=== PATIENT | male | born 1950 | race Caucasian/White ===

== ENCOUNTER → 2018-06-26 | Outpatient (REF) | payer MEDICARE, MEDICAID ==
[2018-06-26 14:52] LABS: PLATELET COUNT, AUTOMATED 159 K/uL (150-450)
== END ==
LOC: ZZSTITCHES 14:40
PROVIDERS: ATTEND Physician Assistant
DX: R42 Dizziness and giddiness (principal)
CPT/HCPCS: 82040; 82247; 82310; 82374; 82435; 82565; 82947; 84075; 84132; 84155; 84295; 84450; 84460; 84520; 85025

== ENCOUNTER 2018-06-28 13:35 | Emergency (ER) | payer MEDICARE, MEDICAID ==
--- NOTE | 2018-06-28 13:37 | ER Report ---
History and Physical Time Seen By MD: 13:37 HPI/ROS CHIEF COMPLAINT: Syncopal episode and fall HISTORY OF PRESENT ILLNESS: This is a 68-year-old male who presents to the emergency department via EMS from [facility] for a syncopal episode and a fall. Patient states that recently he's been having more and more syncopal episodes, got up earlier this morning felt a little bit dizzy when back to bed, a friend came over to see how he was doing, he stood up and walked to the door and then had a question of a syncopal episode fell to the ground and heard some popping and had severe right lower extremity pain. He also has pain in the right hip. There is a large amount of soft tissue swelling questionable deformity. Denies hitting his head, no nausea or vomiting. No chest pain or shortness of breath at this time. He did receive 100 g of IM fentanyl prior to arrival. REVIEW OF SYSTEMS: Constitutional: No fever, no chills. Eyes: No discharge. ENT: No sore throat. Cardiovascular: No chest pain, no palpitations. Respiratory: No cough, no shortness of breath. Gastrointestinal: No abdominal pain, no vomiting. Genitourinary: No hematuria. Musculoskeletal: As above. Skin: No rashes. Neurological: As above. Allergies: Coded Allergies: Quinolones (Verified Allergy, Severe, CHEST PAIN, 06/28/18) elevated potassium at lethal levels ciprofloxacin (Verified Adverse Reaction, Severe, NAUSEA/VOMITING, 06/28/18) NSAIDS (Non-Steroidal Anti-Inflamma (Verified Adverse Reaction, Intermediate, UNKNOWN, 06/28/18) can't take due to ckd metformin (Verified Adverse Reaction, Intermediate, SEDATION, 06/28/18) sulfamethoxazole (Verified Adverse Reaction, Intermediate, HALLUCINATIONS, 06/28/18) trimethoprim (Verified Adverse Reaction, Intermediate, HALLUCINATIONS, 06/28/18) Home Meds Reported Medications [vitamin b gtts] No Conflict Check, 0.5 GTT PO BID 06/28/18 Exenatide Microspheres (BYDUREON) 2 Mg Vial, 2 MG SQ QWEEK, VIAL 06/28/18 Insulin Aspart 100 Un/Ml Pen (NOVOLOG FLEXPEN) 100 Unit/1 Ml Insuln.pen, 100 UNIT SQ ACHS, ML 06/28/18 Insulin Detemir (LEVEMIR) 100 Unit/Ml Injs, 52 UNIT SUBQ HS 06/28/18 Nitroglycerin (NITROGLYCERIN) 0.4 Mg Tab.subl, 0.4 MG SL Q5MIN PRN for CHEST PAIN-MAY REPEAT X 3 06/28/18 Cranberry Extract (CRANBERRY) 405 Mg Capsule, 405 MG PO QDAY, CAPSULE 06/28/18 Glipizide (GLIPIZIDE) 10 Mg Tablet, 10 MG PO BID 06/28/18 Chlorthalidone (CHLORTHALIDONE) 25 Mg Tab, 25 MG PO QDAY, TAB 06/28/18 Atorvastatin Calcium (LIPITOR) 40 Mg Tablet, 1 TAB PO QDAY, TAB 06/28/18 Omeprazole (OMEPRAZOLE) 20 Mg Capsule.dr, 1 CAP PO QDAY, CAP 06/28/18 Duloxetine HCl (Duloxetine HCl) 60 Mg Capsule.dr, 60 MG PO HS 06/28/18 Multivits-Minerals/Fa/Lycopene (ONE DAILY MEN'S HEALTH TABLET) 1 Each Tablet, 1 CAP PO QDAY 06/28/18 [kyolic] No Conflict Check, 1 CAP PO QDAY 06/28/18 Aspirin (ASPIR 81) 81 Mg Tablet.dr, 81 MG PO QDAY, TAB 06/28/18 Fluoxetine Hcl (FLUOXETINE HCL) 20 Mg Capsule, 20 MG PO QDAY, CAPSULE 06/28/18 Hydrocodone Bit/Acetaminophen (HYDROCODON-ACETAMINOPHEN 5-325) 1 Each Tablet, 1 EACH PO Q6H PRN for PAIN, TAB 06/28/18 Ondansetron (ZOFRAN ODT) 4 Mg Tab.rapdis, 4 MG PO Q12H PRN for NAUSEA, TAB.GEORGE 06/28/18 Metoprolol Tartrate (METOPROLOL TARTRATE) 25 Mg Tablet, 1 TAB PO BID, TAB 06/28/18 Cholecalciferol (Vitamin D3) (VITAMIN D3) 1,000 Unit Tablet, 2000 UNIT PO QDAY, TAB 06/28/18 [ultra-zyme] No Conflict Check, 1 CAP PO QDAY 06/28/18 Lisinopril (LISINOPRIL) 5 Mg Tablet, 5 MG PO QDAY, TAB 06/28/18 Tamsulosin Hcl (TAMSULOSIN HCL) 0.4 Mg Cap.er.24h, 0.4 MG PO DAILY, CAP 06/28/18 Gabapentin (GABAPENTIN) 300 Mg Capsule, 900 MG PO HS, CAPSULE 06/28/18 Gabapentin (GABAPENTIN) 300 Mg Capsule, 300 MG PO BID, CAPSULE 06/28/18 Past Medical/Surgical History The patient has a past medical and surgical history of seizures, myocardial infarction, hypertension, hypercholesterolemia, COPD, GERD, diverticulitis, bladder disease, liver disease, successful treatment for hep C, urinary tract infections, kidney infections, BPH, multiple orthopedic injuries including thumb, left ankle, right leg, chronic back pain, broken cracked ribs, cataract surgery, sinusitis, type II diabetes with insulin, depression, history of m elanoma, cholecystectomy, left ankle surgery, bilateral carpal tunnel surgery. Reviewed Nurses Notes: Yes Constitutional Vital Sign - Last 24 Hours 06/28/18 06/28/18 06/28/18 06/28/18 13:35 13:37 13:40 14:00 Temp 98.5 Pulse 88 71 Resp 11 12 B/P (MAP) 143/88 (106) 143/88 153/103 (120) Pulse Ox 93 98 O2 Delivery Room Air Room Air 06/28/18 06/28/18 06/28/18 06/28/18 14:05 14:35 14:57 15:00 Pulse 82 79 Resp 9 10 B/P (MAP) 111/69 (83) 125/81 (96) Pulse Ox 93 94 O2 Delivery Room Air Room Air 06/28/18 06/28/18 06/28/18 06/28/18 15:05 15:10 15:30 15:40 Pulse 86 81 91 Resp 11 12 11 B/P (MAP) 124/88 (100) Pulse Ox 98 96 97 O2 Delivery Room Air Room Air Room Air 06/28/18 06/28/18 06/28/18 06/28/18 15:45 16:00 16:15 16:20 Pulse 88 86 90 Resp 16 14 9 B/P (MAP) 118/78 (91) Pulse Ox 96 94 93 O2 Delivery Room Air Room Air Room Air 06/28/18 16:30 B/P (MAP) 113/70 (84) Physical Exam General Appearance: The patient is alert, has no immediate need for airway protection and no signs of toxicity. Eyes: Pupils equal and round no pallor or injection. EOMs intact. No nystagmus. ENT, Mouth: Mucous membranes are moist. Respiratory: There are no retractions, lungs are clear to auscultation. Cardiovascular: Regular rate and rhythm, no murmurs, clicks or rubs. Gastrointestinal: Abdomen is soft and non tender, no masses, bowel sounds normal. Neurological: Alert and oriented 4. Moving all extremities. Following all commands. No focal neuro deficits. Rapid sequence movements of the upper extremities intact. Equal sensation in the upper and lower extremities. Neuropathy in lower extremities. No facial droop. Skin: Contusion to the right lower extremity. Abrasion to the right knee. Musculoskeletal: Neck is supple non tender. Extremities swelling, pain and mild crepitus felt with firm palpation of the right lower extremity. Dopplered pulses on the right lower extremity on the dorsalis pedis and posterior tibial. DIFFERENTIAL DIAGNOSIS: After history and physical exam differential diagnosis was considered for contusion, pelvic fracture, femur fracture, ankle subluxation, tib-fib fracture and abrasion. Medical Decision Making Data Points Result Diagram: 06/28/18 1407 06/28/18 1407 Laboratory Hematology Test 06/28/18 14:07 Red Blood Count 4.81 M/uL (4.00-5.60) Mean Corpuscular Volume 95.1 fL (80.0-96.0) Mean Corpuscular Hemoglobin 33.8 pg (26.0-33.0) Mean Corpuscular Hemoglobin Concent 35.5 g/dL (32.0-36.0) Red Cell Distribution Width 13.3 % (11.5-14.5) Mean Platelet Volume 7.3 fL (7.2-11.1) Neutrophils (%) (Auto) 66.1 % (39.4-72.5) Lymphocytes (%) (Auto) 26.1 % (17.6-49.6) Monocytes (%) (Auto) 5.9 % (4.1-12.4) Eosinophils (%) (Auto) 1.2 % (0.4-6.7) Basophils (%) (Auto) 0.7 % (0.3-1.4) Nucleated RBC Relative Count (auto) 0.0 /100WBC Neutrophils # (Auto) 6.3 K/uL (2.0-7.4) Lymphocytes # (Auto) 2.5 K/uL (1.3-3.6) Monocytes # (Auto) 0.6 K/uL (0.3-1.0) Eosinophils # (Auto) 0.1 K/uL (0.0-0.5) Basophils # (Auto) 0.1 K/uL (0.0-0.1) Nucleated RBC Absolute Count (auto) 0.00 K/uL Peripheral Blood Smear No Y/N Prothrombin Time 13.3 seconds (12.0-14.4) Prothromb Time International Ratio 1.01 Activated Partial Thromboplast Time 30 seconds (23-35) Sodium Level 135 mmol/L (137-145) Potassium Level 4.4 mmol/L (3.5-5.0) Chloride Level 96 mmol/L (98-107) Carbon Dioxide Level 23 mmol/L (22-30) Blood Urea Nitrogen 25 mg/dl (9-21) Creatinine 1.40 mg/dl (0.66-1.25) Glomerular Filtration Rate Calc 50.4 Random Glucose 170 mg/dl (75-110) Calcium Level 10.2 mg/dl (8.4-10.2) Total Bilirubin 1.5 mg/dl (0.2-1.3) Aspartate Amino Transf (AST/SGOT) 34 U/L (0-35) Alanine Aminotransferase (ALT/SGPT) 28 U/L (0-56) Alkaline Phosphatase 65 U/L (0-126) Troponin I < 0.012 ng/ml Total Protein 8.8 g/dl (6.3-8.2) Albumin 4.5 g/dl (3.5-5.0) Chemistry Test 06/28/18 14:07 White Blood Count 9.6 k/uL (4.5-11.0) Red Blood Count 4.81 M/uL (4.00-5.60) Hemoglobin 16.3 g/dL (14.0-18.0) Hematocrit 45.8 % (42.0-52.0) Mean Corpuscular Volume 95.1 fL (80.0-96.0) Mean Corpuscular Hemoglobin 33.8 pg (26.0-33.0) Mean Corpuscular Hemoglobin Concent 35.5 g/dL (32.0-36.0) Red Cell Distribution Width 13.3 % (11.5-14.5) Platelet Count 143 K/uL (150-450) Mean Platelet Volume 7.3 fL (7.2-11.1) Neutrophils (%) (Auto) 66.1 % (39.4-72.5) Lymphocytes (%) (Auto) 26.1 % (17.6-49.6) Monocytes (%) (Auto) 5.9 % (4.1-12.4) Eosinophils (%) (Auto) 1.2 % (0.4-6.7) Basophils (%) (Auto) 0.7 % (0.3-1.4) Nucleated RBC Relative Count (auto) 0.0 /100WBC Neutrophils # (Auto) 6.3 K/uL (2.0-7.4) Lymphocytes # (Auto) 2.5 K/uL (1.3-3.6) Monocytes # (Auto) 0.6 K/uL (0.3-1.0) Eosinophils # (Auto) 0.1 K/uL (0.0-0.5) Basophils # (Auto) 0.1 K/uL (0.0-0.1) Nucleated RBC Absolute Count (auto) 0.00 K/uL Peripheral Blood Smear No Y/N Prothrombin Time 13.3 seconds (12.0-14.4) Prothromb Time International Ratio 1.01 Activated Partial Thromboplast Time 30 seconds (23-35) Glomerular Filtration Rate Calc 50.4 Calcium Level 10.2 mg/dl (8.4-10.2) Total Bilirubin 1.5 mg/dl (0.2-1.3) Aspartate Amino Transf (AST/SGOT) 34 U/L (0-35) Alanine Aminotransferase (ALT/SGPT) 28 U/L (0-56) Alkaline Phosphatase 65 U/L (0-126) Troponin I < 0.012 ng/ml Total Protein 8.8 g/dl (6.3-8.2) Albumin 4.5 g/dl (3.5-5.0) Coagulation Test 06/28/18 14:07 Prothrombin Time 13.3 seconds Prothromb Time International Ratio 1.01 Activated Partial Thromboplast Time 30 seconds EKG/Imaging EKG Interpretation 12 lead EKG: Time of EKG 1349. Rhythm: Normal sinus rhythm, ventricular rate 75 bpm. [place]: normal QRS: normal ST segments: No ST elevation or depression identified. No previous EKGs for comparison. Imaging Location: [facility] Patient: Basilio Jeter : 1950 Visit/Account:[id number] Date of Sevice: 06/28/2018 Three views right ankle, two views right tibia fibula, three dedicated views right knee, two views right femur, two views right hip INDICATION: Fall, deformity of the right lower extremity. COMPARISON: None Available FINDINGS: Three dedicated views of the ankle are submitted. There is a partially viewed, obliquely oriented, displaced fracture through the distal tibial shaft. This fracture is best delineated on the dedicated views of the tibia and fibula. The distal fracture fragment is approximately 1.2 cm medially and 1.6 cm anteriorly displaced. Punctate, subtly displaced fracture fragments are noted. The mortise joint appears symmetric. Talar dome is unremarkable. Distal fibula is intact. Minimal view of the hindfoot demonstrates no evidence of acute osseous finding. 2 dedicated views of the tibia and fibula demonstrate the obliquely oriented, mildly displaced proximal fibular fracture with the obliquely oriented, dis placed distal tibial fracture. 3 Dedicated views of the knee are submitted. There is an obliquely oriented, mildly displaced fracture proximal fibular shaft. The distal fracture fragment is 6 mm laterally and 3 mm anteriorly displaced. The proximal tibia is unremarkable. Alignment is anatomic at the knee. Small joint effusion is noted. The remainder of the femur is intact. Dedicated views of the proximal femur and at the hip demonstrate anatomic alignment without additional fracture. A stent is noted over the region of the femoral head. The right pubic rami are intact. Structures of the pelvis appears symmetric. IMPRESSION: 1. Obliquely oriented, mildly displaced proximal fibular fracture with an obliquely oriented, displaced distal tibial fracture as above. 2.Small joint effusion at the knee 3. Dedicated imaging of the hip and ankle reveal no additional acute osseous finding. Proximal femurs unremarkable. Report Dictated By: Steve Garay MD at 06/28/2018 2:59 PM Report E-Signed By: Steve Garay MD at 06/28/2018 3:08 PM WSN:[email or web address] Location: [facility] Patient: Basilio Jeter : 1950 Visit/Account:[id number] Date of Sevice: 06/28/2018 Single view of the chest Indication: Fall Comparison: Xray from 03/17/18 Findings: Heart size within normal limits. Lungs are clear. No pneumothorax or pleural effusion. No evidence of acute osseous finding on this single frontal projection IMPRESSION: 1. No acute cardiopulmonary process. Report Dictated By: Steve Garay MD at 06/28/2018 2:56 PM Report E-Signed By: Steve Garay MD at 06/28/2018 2:59 PM WSN:[facility] Three views right ankle, two views right tibia fibula, three dedicated views right knee, two views right femur, two views right hip INDICATION: Fall, deformity of the right lower extremity. COMPARISON: None Available FINDINGS: Three dedicated views of the ankle are submitted. There is a partially viewed, obliquely oriented, displaced fracture through the distal tibial shaft. This fracture is best delineated on the dedicated views of the tibia and fibula. The distal fracture fragment is approximately 1.2 cm medially and 1.6 cm anteriorly displaced. Punctate, subtly displaced fracture fragments are noted. The mortise joint appears symmetric. Talar dome is unremarkable. Distal fibula is intact. Minimal view of the hindfoot demonstrates no evidence of acute osseous finding. 2 dedicated views of the tibia and fibula demonstrate the obliquely oriented, mildly displaced proximal fibular fracture with the obliquely oriented, displaced distal tibial fracture. 3 Dedicated views of the knee are submitted. There is an obliquely oriented, mildly displaced fracture proximal fibular shaft. The distal fracture fragment is 6 mm laterally and 3 mm anteriorly displaced. The proximal tibia is unremarkable. Alignment is anatomic at the knee. Small joint effusion is noted. The remainder of the femur is intact. Dedicated views of the proximal femur and at the hip demonstrate anatomic alignment without additional fracture. A stent is noted over the region of the femoral head. The right pubic rami are intact. Structures of the pelvis appears symmetric. IMPRESSION: 1. Obliquely oriented, mildly displaced proximal fibular fracture with an obliquely oriented, displaced distal tibial fracture as above. 2.Small joint effusion at the knee 3. Dedicated imaging of the hip and ankle reveal no additional acute osseous finding. Proximal femurs unremarkable. Report Dictated By: Steve Garay MD at 06/28/2018 2:59 PM Report E-Signed By: Steve Garay MD at 06/28/2018 3:08 PM WSN:[facility] ED Course/Re-evaluation Clinical Indication for ER IV: Hydration, IV Access ED Course The patient was admitted to a room via EMS. A history and physical were obtained. Differential diagnoses were considered. An IV was started via EMS. A CBC, CMP and troponin were obtained. EKG showing normal sinus rhythm. Patient did receive 100 g IM fentanyl prior to arrival. Patient was given 1 mg IV Dilaudid in the emergency department.CBC unremarkable, chemistry showing sodium 135, BUN 25, creatinine 1.4, glucose 170. Negative troponin. A single view chest x-ray was negative for any acute cardiopulmonary process. Right hip and pelvis negative for any acute injury. Negative femur. Knee showing small effusion. Tib- fib showing Obliquely oriented, mildly displaced proximal fibular fracture with an obliquely oriented, displaced distal tibial fracture, 6mm laterally, 3mm anteriorly. No acute injury of the ankle mortise. I reviewed the imaging results with the patient, we reviewed several options, I did tell him I would be contacting the orthopedist on-call, I did speak with Dr. Cornelius as noted below, he also contacted his partner who will be coming on-call Dr. Hercules, they feel that the patient would be better served in a larger facility as noted below. I did speak with Dr. Jonas the orthopedist on-call at [facility], she is accepted the patient into her services as noted below. The patient did decide that he would prefer to go to [facility]. My hope is that while the patient is at [facility] they can also evaluate his syncopal episodes. The patient's right lower extremity was splinted to provide some additional pain relief. Patient was also given another 1 mg IV Dilaudid. The patient tolerated well. The patient had no other questions or concerns at this time and was transferred to [facility] via ground EMS. 06/28/2018 3:45:25 pm I did speak with Dr. Cornelius, the orthopedist on-call, he is just going into a case, he is off call later this afternoon, Dr. Hercules is on- call after Dr. Cornelius, he thought the patient would be better served in a larger facility that would be able to manage this more appropriately. 06/28/2018 4:20:57 pm I did speak with Dr. Jonas, the orthopedist on-call at [facility], who has accepted the patient into her services. Patient will be transferred down via ground ambulance. Patient is in agreement with his Medicare. Procedure: Splint placement. A long posterior splint of the right lower extremity splint was applied. The patient tolerated well, CMS intact distal to the injury after the application of the splint. The splint was adequately immobilizing the joint and distal to the splint the patient's circulation and sensation was intact. Decision to Disposition Date: Jun 28, 2018 Decision to Disposition Time: 16:22 Depart Departure Latest Vital Signs Vital Signs Date Time Temp Pulse Resp B/P (MAP) Pulse Ox O2 Delivery O2 Flow Rate FiO2 06/28/18 16:30 113/70 (84) 06/28/18 16:20 90 9 93 Room Air 06/28/18 13:40 98.5 Impression: Primary Impression: Fracture of right tibia and fibula Additional Impression: Syncope and collapse Condition: Improved Disposition: XFER TO [facility]UTE [facility]ARE [facility] Problem Qualifiers Primary Impression: Fracture of right tibia and fibula Encounter type: initial encounter Fracture type: closed Qualified Codes: S82.201A - Unspecified fracture of shaft of right tibia, initial encounter for closed fracture; S82.401A - Unspecified fracture of shaft of right fibula, initial encounter for closed fracture SHAHANA GLASS JOB SERVICE CONSULTANT-BC Jun 28, 2018 13:37
[2018-06-28] MEDS ORDERED: HYDROMORPHONE HCL 1 MG/ML SYRINGE IVP ONE ×2 (13:45→15:50)
[2018-06-28] MEDS ORDERED: ONDANSETRON 4 MG/2 ML VIAL IVP ONE (13:45)
[2018-06-28 14:18] LABS: PLATELET COUNT, AUTOMATED 143 K/uL (150-450)
[2018-06-28] MEDS ORDERED: TAMS0.4C70 PO (14:18)
[2018-06-28] MEDS ORDERED: GABA-549 PO ×2 (14:18)
[2018-06-28] MEDS ORDERED: MULT1TAB88 PO (14:37)
[2018-06-28] MEDS ORDERED: METO25TA93 PO (14:37)
[2018-06-28] MEDS ORDERED: LISI5TAB25 PO (14:37)
[2018-06-28] MEDS ORDERED: CHOL10005 PO (14:37)
[2018-06-28] MEDS ORDERED: HYDR-385 PO (14:37)
[2018-06-28] MEDS ORDERED: EXEN2VIA SQ (14:37)
[2018-06-28] MEDS ORDERED: LEVI SUBQ (14:37)
[2018-06-28] MEDS ORDERED: INSU100I35 SQ (14:37)
[2018-06-28] MEDS ORDERED: FLUO-177 PO (14:37)
[2018-06-28] MEDS ORDERED: NITR0.4T3 SL (14:37)
[2018-06-28] MEDS ORDERED: [UNRECOGNIZED DRUG - CODE] PO (14:37)
[2018-06-28] MEDS ORDERED: GLIP-154 PO (14:37)
[2018-06-28] MEDS ORDERED: VITAMIN B PO (14:37)
[2018-06-28] MEDS ORDERED: ASPI-1471 PO (14:37)
[2018-06-28] MEDS ORDERED: KYOLIC PO (14:37)
[2018-06-28] MEDS ORDERED: CHLOR25 PO (14:37)
[2018-06-28] MEDS ORDERED: CRAN405C3 PO (14:37)
[2018-06-28] MEDS ORDERED: DULO60CA7 PO (14:37)
[2018-06-28] MEDS ORDERED: ONDA4TAB PO (14:37)
[2018-06-28] MEDS ORDERED: OMEP-125 PO (14:37)
[2018-06-28] MEDS ORDERED: ATOR40TA24 PO (14:37)
--- NOTE | 2018-06-28 15:04 | RADIOLOGY IMAGING REPORT ---
FACILITY: [facility] [place] PATIENT NAME: Basilio Jeter : 1950 MR: [id number] V: [id number] EXAM DATE: ORDERING PHYSICIAN: SHAHANA GLASS TECHNOLOGIST: Location: [facility] [place] Patient: Basilio Jeter : 1950 Visit/Account:[id number] Date of Sevice: 06/28/2018 Single view of the chest Indication: Fall Comparison: Xray from 03/17/18 Findings: Heart size within normal limits. Lungs are clear. No pneumothorax or pleural effusion. No evidence of acute osseous finding on this single frontal projection IMPRESSION: 1. No acute cardiopulmonary process. Report Dictated By: Steve Garay MD at 06/28/2018 2:56 PM Report E-Signed By: Steve Garay MD at 06/28/2018 2:59 PM WSN:[email or web address]
--- NOTE | 2018-06-28 15:13 | RADIOLOGY IMAGING REPORT ---
FACILITY: [facility] [place] PATIENT NAME: Basilio Jeter : 1950 MR: [id number] V: [id number] EXAM DATE: ORDERING PHYSICIAN: SHAHANA GLASS TECHNOLOGIST: Location: [facility] Patient: Basilio Jeter : 1950 Visit/Account:[id number] Date of Sevice: 06/28/2018 Three views right ankle, two views right tibia fibula, three dedicated views right knee, two views ri ght femur, two views right hip INDICATION: Fall, deformity of the right lower extremity. COMPARISON: None Available FINDINGS: Three dedicated views of the ankle are submitted. There is a partially viewed, obliquely oriented, d isplaced fracture through the distal tibial shaft. This fracture is best delineated on the dedicated views of the tibia and fibula. The distal fracture fragment is approximately 1.2 cm medially and 1. 6 cm anteriorly displaced. Punctate, subtly displaced fracture fragments are noted. The mortise kathleen nt appears symmetric. Talar dome is unremarkable. Distal fibula is intact. Minimal view of the hin dfoot demonstrates no evidence of acute osseous finding. 2 dedicated views of the tibia and fibula demonstrate the obliquely oriented, mildly displaced proxim al fibular fracture with the obliquely oriented, displaced distal tibial fracture. 3 Dedicated views of the knee are submitted. There is an obliquely oriented, mildly displaced fract ure proximal fibular shaft. The distal fracture fragment is 6 mm laterally and 3 mm anteriorly displ aced. The proximal tibia is unremarkable. Alignment is anatomic at the knee. Small joint effusion is noted. The remainder of the femur is intact. Dedicated views of the proximal femur and at the hip demonstra te anatomic alignment without additional fracture. A stent is noted over the region of the femoral h ead. The right pubic rami are intact. Structures of the pelvis appears symmetric. IMPRESSION: 1. Obliquely oriented, mildly displaced proximal fibular fracture with an obliquely oriented, displa ruby distal tibial fracture as above. 2.Small joint effusion at the knee 3. Dedicated imaging of the hip and ankle reveal no additional acute osseous finding. Proximal femu rs unremarkable. Report Dictated By: Steve Garay MD at 06/28/2018 2:59 PM Report E-Signed By: Steve Garay MD at 06/28/2018 3:08 PM WSN:[email or web address]
--- NOTE | 2018-06-28 15:13 | RADIOLOGY IMAGING REPORT ---
FACILITY: [facility] PATIENT NAME: Basilio Jeter : 1950 MR: [id number] V: [id number] EXAM DATE: ORDERING PHYSICIAN: SHAHANA GLASS TECHNOLOGIST: Location: [facility] Patient: Basilio Jeter : 1950 Visit/Account:[id number] Date of Sevice: 06/28/2018 Three views right ankle, two views right tibia fibula, three dedicated views right knee, two views ri ght femur, two views right hip INDICATION: Fall, deformity of the right lower extremity. COMPARISON: None Available FINDINGS: Three dedicated views of the ankle are submitted. There is a partially viewed, obliquely oriented, d isplaced fracture through the distal tibial shaft. This fracture is best delineated on the dedicated views of the tibia and fibula. The distal fracture fragment is approximately 1.2 cm medially and 1. 6 cm anteriorly displaced. Punctate, subtly displaced fracture fragments are noted. The mortise kathleen nt appears symmetric. Talar dome is unremarkable. Distal fibula is intact. Minimal view of the hin dfoot demonstrates no evidence of acute osseous finding. 2 dedicated views of the tibia and fibula demonstrate the obliquely oriented, mildly displaced proxim al fibular fracture with the obliquely oriented, displaced distal tibial fracture. 3 Dedicated views of the knee are submitted. There is an obliquely oriented, mildly displaced fract ure proximal fibular shaft. The distal fracture fragment is 6 mm laterally and 3 mm anteriorly displ aced. The proximal tibia is unremarkable. Alignment is anatomic at the knee. Small joint effusion is noted. The remainder of the femur is intact. Dedicated views of the proximal femur and at the hip demonstra te anatomic alignment without additional fracture. A stent is noted over the region of the femoral h ead. The right pubic rami are intact. Structures of the pelvis appears symmetric. IMPRESSION: 1. Obliquely oriented, mildly displaced proximal fibular fracture with an obliquely oriented, displa ruby distal tibial fracture as above. 2.Small joint effusion at the knee 3. Dedicated imaging of the hip and ankle reveal no additional acute osseous finding. Proximal femu rs unremarkable. Report Dictated By: Steve Garay MD at 06/28/2018 2:59 PM Report E-Signed By: Steve Garay MD at 06/28/2018 3:08 PM WSN:[email or web address]
--- NOTE | 2018-06-28 15:14 | RADIOLOGY IMAGING REPORT ---
FACILITY: [facility] PATIENT NAME: Basilio Jeter : 1950 MR: [id number] V: [id number] EXAM DATE: ORDERING PHYSICIAN: SHAHANA GLASS TECHNOLOGIST: Location: [facility] - [place] Patient: Basilio Jeter : 1950 Visit/Account:[id number] Date of Sevice: 06/28/2018 Three views right ankle, two views right tibia fibula, three dedicated views right knee, two views ri ght femur, two views right hip INDICATION: Fall, deformity of the right lower extremity. COMPARISON: None Available FINDINGS: Three dedicated views of the ankle are submitted. There is a partially viewed, obliquely oriented, d isplaced fracture through the distal tibial shaft. This fracture is best delineated on the dedicated views of the tibia and fibula. The distal fracture fragment is approximately 1.2 cm medially and 1. 6 cm anteriorly displaced. Punctate, subtly displaced fracture fragments are noted. The mortise kathleen nt appears symmetric. Talar dome is unremarkable. Distal fibula is intact. Minimal view of the hin dfoot demonstrates no evidence of acute osseous finding. 2 dedicated views of the tibia and fibula demonstrate the obliquely oriented, mildly displaced proxim al fibular fracture with the obliquely oriented, displaced distal tibial fracture. 3 Dedicated views of the knee are submitted. There is an obliquely oriented, mildly displaced fract ure proximal fibular shaft. The distal fracture fragment is 6 mm laterally and 3 mm anteriorly displ aced. The proximal tibia is unremarkable. Alignment is anatomic at the knee. Small joint effusion is noted. The remainder of the femur is intact. Dedicated views of the proximal femur and at the hip demonstra te anatomic alignment without additional fracture. A stent is noted over the region of the femoral h ead. The right pubic rami are intact. Structures of the pelvis appears symmetric. IMPRESSION: 1. Obliquely oriented, mildly displaced proximal fibular fracture with an obliquely oriented, displa ruby distal tibial fracture as above. 2.Small joint effusion at the knee 3. Dedicated imaging of the hip and ankle reveal no additional acute osseous finding. Proximal femu rs unremarkable. Report Dictated By: Steve Garay MD at 06/28/2018 2:59 PM Report E-Signed By: Steve Garay MD at 06/28/2018 3:08 PM WSN:SIENNA
--- NOTE | 2018-06-28 15:15 | RADIOLOGY IMAGING REPORT ---
[place] [facility] [place]: Basilio Jeter : 1950 MR: [id number] V: [id number] EXAM DATE: ORDERING PHYSICIAN: SHAHANA GLASS TECHNOLOGIST: Location: [facility] Patient: Basilio Jeter : 1950 Visit/Account:[id number] Date of Sevice: 06/28/2018 Three views right ankle, two views right tibia fibula, three dedicated views right knee, two views ri ght femur, two views right hip INDICATION: Fall, deformity of the right lower extremity. COMPARISON: None Available FINDINGS: Three dedicated views of the ankle are submitted. There is a partially viewed, obliquely oriented, d isplaced fracture through the distal tibial shaft. This fracture is best delineated on the dedicated views of the tibia and fibula. The distal fracture fragment is approximately 1.2 cm medially and 1. 6 cm anteriorly displaced. Punctate, subtly displaced fracture fragments are noted. The mortise kathleen nt appears symmetric. Talar dome is unremarkable. Distal fibula is intact. Minimal view of the hin dfoot demonstrates no evidence of acute osseous finding. 2 dedicated views of the tibia and fibula demonstrate the obliquely oriented, mildly displaced proxim al fibular fracture with the obliquely oriented, displaced distal tibial fracture. 3 Dedicated views of the knee are submitted. There is an obliquely oriented, mildly displaced fract ure proximal fibular shaft. The distal fracture fragment is 6 mm laterally and 3 mm anteriorly displ aced. The proximal tibia is unremarkable. Alignment is anatomic at the knee. Small joint effusion is noted. The remainder of the femur is intact. Dedicated views of the proximal femur and at the hip demonstra te anatomic alignment without additional fracture. A stent is noted over the region of the femoral h ead. The right pubic rami are intact. Structures of the pelvis appears symmetric. IMPRESSION: 1. Obliquely oriented, mildly displaced proximal fibular fracture with an obliquely oriented, displa ruby distal tibial fracture as above. 2.Small joint effusion at the knee 3. Dedicated imaging of the hip and ankle reveal no additional acute osseous finding. Proximal femu rs unremarkable. Report Dictated By: Steve Garay MD at 06/28/2018 2:59 PM Report E-Signed By: Steve Garay MD at 06/28/2018 3:08 PM WSN:SIENNA
--- NOTE | 2018-06-28 15:15 | RADIOLOGY IMAGING REPORT ---
FACILITY: [facility] PATIENT NAME: Basilio Jeter : 1950 MR: [id number] V: [id number] EXAM DATE: ORDERING PHYSICIAN: SHAHANA GLASS TECHNOLOGIST: Location: [facility] [place] Patient: Basilio Jeter : 1950 Visit/Account:[id number] Date of Sevice: 06/28/2018 Three views right ankle, two views right tibia fibula, three dedicated views right knee, two views ri ght femur, two views right hip INDICATION: Fall, deformity of the right lower extremity. COMPARISON: None Available FINDINGS: Three dedicated views of the ankle are submitted. There is a partially viewed, obliquely oriented, d isplaced fracture through the distal tibial shaft. This fracture is best delineated on the dedicated views of the tibia and fibula. The distal fracture fragment is approximately 1.2 cm medially and 1. 6 cm anteriorly displaced. Punctate, subtly displaced fracture fragments are noted. The mortise kathleen nt appears symmetric. Talar dome is unremarkable. Distal fibula is intact. Minimal view of the hin dfoot demonstrates no evidence of acute osseous finding. 2 dedicated views of the tibia and fibula demonstrate the obliquely oriented, mildly displaced proxim al fibular fracture with the obliquely oriented, displaced distal tibial fracture. 3 Dedicated views of the knee are submitted. There is an obliquely oriented, mildly displaced fract ure proximal fibular shaft. The distal fracture fragment is 6 mm laterally and 3 mm anteriorly displ aced. The proximal tibia is unremarkable. Alignment is anatomic at the knee. Small joint effusion is noted. The remainder of the femur is intact. Dedicated views of the proximal femur and at the hip demonstra te anatomic alignment without additional fracture. A stent is noted over the region of the femoral h ead. The right pubic rami are intact. Structures of the pelvis appears symmetric. IMPRESSION: 1. Obliquely oriented, mildly displaced proximal fibular fracture with an obliquely oriented, displa ruby distal tibial fracture as above. 2.Small joint effusion at the knee 3. Dedicated imaging of the hip and ankle reveal no additional acute osseous finding. Proximal femu rs unremarkable. Report Dictated By: Steve Garay MD at 06/28/2018 2:59 PM Report E-Signed By: Steve Garay MD at 06/28/2018 3:08 PM WSN:SIENNA
[2018-06-28] MEDS ORDERED: fentaNYL CITR 100 MCG/2 ML AMP IVP ONE (16:00)
[2018-06-28 16:30] VITALS: BP 113/70
[2018-06-28 16:41] LABS: INR 1.01
--- NOTE | 2018-06-29 09:30 | EKG ---
FACILITY: [facility] - [place] PATIENT NAME: FLORES FITCH : [id number] MR: [id number] V: [id number] EXAM DATE: ORDERING PHYSICIAN: SHAHANA GLASS TECHNOLOGIST: ELIZA Fonseca Reason : FALL Blood Pressure : / mmHG Vent. Rate : 075 BPM Atrial Rate : 075 BPM P-R Int : 152 ms QRS Dur : 086 ms QT Int : 378 ms P-R-T Axes : -03 033 027 degrees QTc Int : 422 ms Normal sinus rhythm Low voltage QRS Borderline ECG No previous ECGs available Confirmed by Luis Alfredo Potter [id number] on 06/29/2018 8:35:59 PM Referred By: Confirmed By:Luis Alfredo Garza
== END 2018-06-28 16:57 | disposition short-term general hospital (02) ==
LOC: ER 13:39
DX: S82.201A Unspecified fracture of shaft of right tibia, initial encounter for closed fracture (principal); S82.431A Displaced oblique fracture of shaft of right fibula, initial encounter for closed fracture; R55 Syncope and collapse
CPT/HCPCS: 29505; 71045; 73502; 73552; 73562; 73590; 73610; 84484; 85025; 85610; 85730; 99285; J1170; J2405; J3010; 82040; 82247; 82310; 82374; 82435; 82565; 82947; 84075; 84132; 84155; 84295; 84450; 84460; 84520

== ENCOUNTER → 2018-06-28 | Outpatient (CLI) | payer MEDICARE, MEDICAID ==
[~2018-06-28] MED LIST: ASPI-1471 PO; ATOR40TA24 PO; CHLOR25 PO; CHOL10005 PO; CRAN405C3 PO; DULO60CA7 PO; EXEN2VIA SQ; FLUO-177 PO; GABA-549 PO; GLIP-154 PO; HYDR-385 PO; INSU100I35 SQ; KYOLIC PO; LEVI SUBQ; LISI5TAB25 PO; METO25TA93 PO; MULT1TAB88 PO; NITR0.4T3 SL; OMEP-125 PO; ONDA4TAB PO; TAMS0.4C70 PO; VITAMIN B PO; [UNRECOGNIZED DRUG - CODE] PO
== END ==
LOC: AMB 16:30
PROVIDERS: ATTEND Nurse Practitioner
DX: S82.201A Unspecified fracture of shaft of right tibia, initial encounter for closed fracture (principal); S82.401A Unspecified fracture of shaft of right fibula, initial encounter for closed fracture; W18.39XA Other fall on same level, initial encounter
CPT/HCPCS: A0425; A0428

== ENCOUNTER → 2018-06-28 | Outpatient (CLI) | payer MEDICARE, MEDICAID | LOC: AMB 11:50 | PROVIDERS: ATTEND Nurse Practitioner | DX: S82.91XA Unspecified fracture of right lower leg, initial encounter for closed fracture (principal); R42 Dizziness and giddiness; W18.30XA Fall on same level, unspecified, initial encounter | CPT/HCPCS: A0425; A0427 ==